=== PATIENT | male | born 1980 | race African-American/Black ===

== ENCOUNTER 2016-10-29 14:05 | Emergency (ER) | payer BC ==
--- NOTE | ~2016-10-29 | CT71 ---
[facility] A Service [facility] RADIOLOGY TEXT RESULTS PATIENT: JAYLA MAY LOCATION: [facility] : 78 UNIT #: [id number] AGE: [address]: Alfred Snow MD SEX: M ORDER DR: [id number] [facility] [address] [place], [place] [address] [id number] E MR#: [id number] #: [id number] NAME: JAYLA MAY : 1980 SEX: M STUDY DATE/TIME: 10/29/2016 14:31 UNIT: [facility] ROOM: STUDY DESCRIPTION: CT Head Wo Contrast Attending Physician: Alfred Snow M.D. Ordering Physician: Alfred Snow M.D. Primary Care Physician: Edy Arreaga M.D. MEDICAL IMAGING REPORT This report is preliminary unless electronic signature is present EXAM Noncontrast CT head. DATE 10/29/2016 at 1431 HISTORY Headache and vomiting since Thursday with throbbing and pressure. COMPARISON None TECHNIQUE This CT exam was performed with one or more of the following radiation dose reduction techniques: automatic exposure control, adjustment of mA and/or kV according to patient size, and iterative reconstruction. FINDINGS No acute intracranial hemorrhage, mass lesion, mass effect, midline shift, or evidence of acute or evolving infarct. Ventricular configuration is within normal limits. There is mild patchy ethmoid sinus mucosal thickening. The calvaria is within normal limits. Mastoid air cells are clear. IMPRESSION Mild ethmoid sinus disease. No acute intracranial findings. Dictated by... Karen Rivera M.D. THIS IS AN ELECTRONICALLY VERIFIED REPORT [facility] A Service [facility] RADIOLOGY TEXT RESULTS PATIENT: JAYLA MAY LOCATION: [facility] : 78 UNIT #: [id number] AGE: [address]: Alfred Snow MD SEX: M ORDER DR: Karen Rivera M.D. at 10/30/2016 11:56 AM KIRSTY/javier TD: 10/29/2016 17:28 JOB #: [id number] MEDICAL IMAGING REPORT COPY
[2016-10-29 13:53] LABS: URINE SOURCE CLEAN CATCH
[2016-10-29 13:59] LABS: BASOPHIL% 0.7 % (0-2.5); EOSINOPHIL# 0.1 X10e3 (0-0.7); EOSINOPHIL% 0.8 % (0.0-7.0); HEMATOCRIT 44.6 % (38.0-50.0); HEMOGLOBIN 15.2 gm/dL (13.0-16.0); LYMPHOCYTE# 1.5 X10e3 (1.0-3.5); LYMPHOCYTE% 24.5 % (17.0-45.0); MEAN CELL VOLUME 89.3 FL (83-96); MEAN CORPUSCULAR HEMOGLOBIN 30.4 PG (28-34); MEAN CORPUSCULAR HGB CONC 34.1 g/dL (30-36); MEAN PLATELET VOLUME 8.1 FL (6.5-11.5); MONOCYTE# 0.6 X10e3 (0-1.0); MONOCYTE% 9.8 % (3.0-12.0); NEUTROPHIL% 64.2 % (40-75); PLATELET COUNT 186 X10e3 (140-420); RED CELL DISTRIBUTION WIDTH 13.5 % (11.0-15.5); WHITE BLOOD COUNT 6.3 X10e3 (4.0-10.5)
[2016-10-29 14:02] LABS: DIFF IND NO
[2016-10-29 14:20] LABS: URINE APPEARANCE CLEAR; URINE BILIRUBIN NEG (NEG); URINE BLOOD NEG (NEG); URINE COLOR YELLOW; URINE GLUCOSE NEG (NEG); URINE KETONE TRACE (NEG); URINE LEUKOCYTE ESTERASE NEG (NEG); URINE NITRATE NEG (NEG); URINE PROTEIN NEG (NEG); URINE SPECIFIC GRAVITY 1.024 (1.003-1.035)
[2016-10-29 14:29] LABS: CULTURE INDICATED? NO
[2016-10-29 14:34] LABS: ALBUMIN SERUM 4.3 g/dL (3.5-5.0); ALKALINE PHOSPHATASE 68 U/L (32-92); ALT (SGPT) 22 U/L (10-40); AST (SGOT) 20 U/L (10-42); BILIRUBIN,TOTAL 0.7 mg/dL (0.2-2.0); BLOOD UREA NITROGEN 13 mg/dL (9-23); BUN/CREATININE RATIO 16.25; CALCIUM SERUM 9.4 mg/dL (8.4-10.2); CARBON DIOXIDE 25 mmol/L (22-31); CHLORIDE 105 mmol/L (100-111); CREATININE SERUM 0.8 mg/dL (0.6-1.4); GLOM FILT RATE Estimated ABOVE60 mL/min (>60); GLUCOSE FASTING 85 mg/dL (70-110); POTASSIUM 3.9 mmol/L (3.5-5.1); SODIUM 138 mmol/L (135-145)
== END 2016-10-29 16:16 | disposition home or self-care (01) ==
LOC: CED 14:05
PROVIDERS: Emergency Medicine
DX: R51 Headache (principal); B34.9 Viral infection, unspecified; F17.200 Nicotine dependence, unspecified, uncomplicated
CPT/HCPCS: 36415; 70450; 80053; 81003; 85025; 96361; 96374; 96375; 99284; J1885; J2550